=== PATIENT | female | born 1985 | race Two or more races ===

== ENCOUNTER 2024-11-01 15:11 | Outpatient (AMB) | payer OTHER, SELFPAY ==
--- OUTSIDE RECORDS SUMMARY | 2024-11-01 15:33 | XMS_ITS | Clinical Summary ---
Author Organization [facility] Address [address] [place] [address] Phone Care Team Providers Care Residential Property Manager Name Role Phone Mojgan Leal MD Primary Care Prov ider Allergies Active Allergy Reactions Criticality Noted Date Comments Penicillins 03/19/2024 Medications cholecalciferol (VITAMIN D-3) 50 mcg (2,000 unit) capsule 3 Active dimethyl fumarate 240 mg capsule,delayed release(DR/EC) Take by mouth 2 Times Daily. Active Alyacen 35, 28, 1-35 mg-mcg per tablet TAKE 1 TABLET BY MOUTH 1 (ONE) TIME EACH DAY. PLEASE DISPENSE 90 DAY SUPPLY AND GIVE NECON 35, 28 IF AVAILABLE. THE PATIENT HAD BREAKTHROUGH BLEEDING WHEN SWITCHED TO THE NORTREL, 21 AND DOES NOT WANT THIS. NEEDS PLACEBO WEEK. 84 tablet 3 5 Active MULTIVITAMIN ORAL Take 1 tablet by mouth 1 (one) time each day. Active ascorbic acid (VITAMIN C ORAL) Take 1 tablet by mouth 1 (one) time each day. With vitamin d Active UNABLE TO FIND Take 3 capsules by mouth 1 (one) time each day. Med Name: collagen orally Active Active Problems Problem Noted Date Diagnosed Date Overweight (BMI 25.0-29.9) 09/12/2024 S/P laparoscopic sleeve gastrectomy 09/12/2024 Excess skin of arm 08/10/2024 Intertrigo 08/10/2024 Breakthrough bleeding on control pills Assessment & Plan (06/14/2024 10:59 AM EST): I explained to Amy that, while her newer OCP is the same hormonal formulation as her previous, and sugar pills should not affect bleeding, it is possible that a slight variation in inactive ingredients could have caused her to have irregular bleeding. It could also be stress induced. I explained that we can try to get her back on her old pill. I sent a request to the pharmacy, but Necon not available. They will give her the 28 day pill available with placebo pills. We will see how she does moving forward. She will call if not improving in the next couple months. Class 3 severe obesity due t o excess calories with body mass index (BMI) of 50.0 to 59.9 in adult (CMS/HCC V24, CMS/HCC V28) 03/30/2024 Multiple sclerosis (CMS/HCC V24, CMS/HCC V28) Overview (03/30/2024): Dr. Sanchez History of COVID-19 03/07/2020 Chronic cholecystitis 07/11/2012 Vitamin D deficiency 06/19/2011 Encounters Date Type Department Care Team Description 09/12/2024 7:30 AM EDT Office Visit Adult Medicine [address] [phone] Rena Solomon PA Routine general medical examination at a health care facility (Primary Dx); Multiple sclerosis (CMS/HCC V24, CMS/HCC V28); Vitamin D deficiency; Frequent UTI; Overweight (BMI 25.0-29.9); S/P laparoscopic sleeve gastrectomy; Screening for cardiovascular condition; Encounter for screening involving social determinants of health (SDoH) 08/11/2024 Telephone [facility] [address] [place] [address] Bill Miguel DO authorization (08/11/24 HNE) 08/10/2024 8:30 AM EDT Consult Plastic & Reconstructive Surgery [facility] [address] [place] [address] Bill Miguel DO Excess skin of arm (Primary Dx); Intertrigo from Last 3 Months Immunizations Name Administration Dates Next Due Influenza Quadravalent, MDCK , 0.5ml, preservative free (Flucelvax) 6mo and older 02/08/2022,02/28/2018 Influenza Quadrivalent, 0.5m l, preservative free (Fluarix; FluLaval; Fluzone) ages 6mo and older (Afluria) 3yo and older 02/23/2016 Influenza trivalent, 0.5mL, preservative free (Fluarix; FluLaval; Fluzone) ages 6mo and older (Afluria) 3 years and older 01/17/2011 MMR, measles mumps and rubel la Live (Priorix; M-M-R II) 12mo and older 03/29/2013,02/22/2013 PPD Test 10/29/2015, 5,08/09/2013,2012,02/13/2011,09/24/2008 Tdap Tetanus diptheria acell ular pertussis (Boostrix; Adacel) 7yo and older 02/07/2024,02/13/2011 Surgical History Surgery Date Site/Laterality Comments SECTION PROCEDURE: HISTORICAL ; COMMENT: x2 TUBAL LIGATION PROCEDURE: HISTORICAL TUBAL LIGATION LAPAROSCOPIC PARTIAL GASTRECTOMY 03/01/2023 Medical History Medical History Date Comments Obesity DX:Obesity Genital HSV DX:Genital HSV Family History Medical History Relation Name Comments Fibromyalgia Brother No Known Problems Daughter 1 No Known Problems Daughter 2 Arthritis Father Diabetes Father Hypertension Father Osteoporosis Father No Known Problems Maternal Grandfather No Known Problems Maternal Grandmother Hypertension Mother Cervical cancer Other 1 mothers side No Known Problems Sister Breast cancer Neg Hx Colon cancer Neg Hx Ovarian cancer Neg Hx Prostate cancer Neg Hx Uterine cancer Neg Hx Relation Name Status Comments Brother Alive Daughter 1 Alive Daughter 2 Alive Father Alive Maternal Grandfather Alive Maternal Grandmother Alive Mother Alive Other 1 Other 2 Paternal Grandfather Paternal Grandmother Sister Alive Social History Tobacco Use Types Packs/Day Years Used Date Smoking Tobacco: Former Cigarettes Q uit: 03/11/2013 Smokeless Tobacco: Never Alcohol Use Standard Drinks/Week Comments No 0 (1 standard drink = 0.6 oz pur e alcohol) Housing Instability Answer Date Recorde d Are you worried that in the next 2 months you may not have stable housing? No 09/12/2024 Food Access & Nutrition Answer Date Rec orded Do you have access to a vari ety of food including fruits and vegetables? Yes 09/12/2024 Access to Healthcare Answer Date Record ed Within the last 3 months, ho w many times did you visit the emergency department for your medical care? 0 09/12/2024 Health Literacy Answer Date Recorded How often do you need to hav e someone help you when you read instructions, pamphlets, or other written material from your doctor or pharmacy? Never 09/12/2024 Caregiver: How often do you need to have someone help you when you read instructions, pamphlets, or other written material from your doctor or pharmacy? Not on file 09/12/2024 Financial Risk Answer Date Recorded How hard is it for you to pa y for the very basics like food, housing, medical care, and air conditioning / heating? Not very hard 09/12/2024 Transportation Answer Date Recorded Has the lack of transportati on kept you from meetings, work, or from getting things needed for daily living? No Has the lack of transportati on kept you from medical appointments or from getting medications? No 09/12/2024 Social Isolation Answer Date Recorded How often do you feel lonely or isolated from th ose around you? Never 09/12/2024 Food Risk Answer Date Recorded Within the past 12 months we worried whether our food would run out before we got money to buy more. Never true 09/12/2024 Within the past 12 months th e food we bought just didn't last and we didn't have money to get more. Never true 09/12/2024 Dependent Care Answer Date Recorded Do you need help finding or paying for care for your loved ones. For example, childbirth and infant care teacher or elderly care for an older adult? No 09/12/2024 Education Answer Date Recorded Do you think completing more education or training, like finishing a GED, going to college, or learning a trade, would be helpful for you? No 09/12/2024 Employment and Income Answer Date Recor ded During the last four weeks, have you been actively looking for work? No 09/12/2024 Living Situation Answer Date Recorded What is your living situation? 0 09/12/2024 Comments No Sex and Gender Information Value Date Recorded Sex Assigned at Female 03/19/2024 6:32 PM EST Legal Sex Female 9:32 AM EST Gender Identity Female 03/19/2024 6:32 PM EST Sexual Orientation Straight 03/19/2024 6: 33 PM EST Obstetrics History Para Term AB IAB SAB Ectopic Multiple Livin g Live Births 2 2 2 2 2 Date Outcome GA Total Labor Labor/2nd/3rd Weight Sex Type Anes PTL Hazel A1 A5 Name Clin 01/09 Term 40w 0d F CS-Un spec Living Nabila 04/10 Term 40w 0d F CS-Un spec Living Nathan Last Filed Vital Signs Vital Sign Reading Time Taken Comments Blood Pressure 108/60 09/12/2024 7:27 AM EDT Pulse 64 09/12/2024 7:27 AM EDT Temperature 36.6 C (97.8 F) 09/12/2024 7:27 AM EDT Respiratory Rate 12 09/12/2024 7:27 AM EDT Oxygen Saturation 100% 03/19/2024 8:02 PM EST Inhaled Oxygen Concentration - - Weight 68.8 kg (151 lb 9.6 oz) 09/12/2024 7:27 A M EDT Height 154.9 cm (5' 1 ) 09/12/2024 7:27 AM EDT Body Mass Index 28.64 09/12/2024 7:27 AM EDT Plan of Treatment Upcoming Encounters Date Type Department Care Team (Late st Contact Info) Description 01/10/2025 2:00 PM EDT Office Visit Urogynecology [facility] [address] [place] [address] Jennifer Catherine MD [address] [place] [address] [address] [place] [address] 01/24/2025 8:00 AM EDT Office Visit B[facility] Surgery [facility] [address] [facility] [address] [place] [id number] Racheal Casas PA [address] [facility] [address] [place] [address] 09/17/2025 7:30 AM EDT Office Visit Adult Medicine [facility] [address] [place] [address] Rena Solomon PA [address] [place] [address] Health Maintenance Due Date Last Done Comments Hepatitis B Vaccines (1 of 3 - 19+ 3-dose series) 2005 Influenza Vaccine (#1) 2024 , 02/28/2018, 02/23/2016, Additional history exists Depression Screening 02/06/2025 02/07/2024 Social Influencers of Health Screening 09/12/2025 09/12/2024 Cervical Cancer Screening: HPV 07/03/2027 07/02/2022 Cholesterol Screening (Lipid Panel) 10/06/2029 10/06/2024, 08/20/2022 DTaP,Tdap,and Td Vaccines (3 - Td or Tdap) 02/06/2034 02/07/2024, 02/13/2011 MMR Vaccines Aged Out 03/29/2013, 02/22/2013 No lo nger eligible based on patient's age to complete this topic HIV Screening Completed 12/20/2018 Hepatitis C Screening Completed 12/20/2018 COVID-19 Vaccine Discontinued 03/02/2022, 10/2020, 06/11/2020, Additional history exists HIB Vaccines Aged Out No longer eligi ble based on patient's age to complete this topic HPV Vaccines Aged Out No longer eligi ble based on patient's age to complete this topic Hepatitis A Vaccines Aged Out No long er eligible based on patient's age to complete this topic IPV Vaccines Aged Out No longer eligi ble based on patient's age to complete this topic Meningococcal ACWY Vaccine Aged Out N o longer eligible based on patient's age to complete this topic Meningococcal B Vaccine Aged Out No l onger eligible based on patient's age to complete this topic Pneumococcal Vaccine: Pediatrics (0 to 5 Years) and At-Risk Patients (6 to 49 Years) Aged Out No longer eligible based on patient's age to complete this topic RSV Immunization Patients Under 20 months Aged Out No longer eligible based on patient's age to complete this topic Varicella Vaccines Aged Out No longer eligible based on patient's age to complete this topic Procedures Procedure Name Priority Date/Time Associated Diagnosis Comments CBC WITH AUTO DIFFERENTIAL Routine 10/06/2024 9:19 AM EDT Screening for cardiovascular condition LIPID PANEL WITH REFLEX TO DIRECT LDL Routine 10/06/2024 9:19 AM EDT Screening for cardiovascular condition COMPREHENSIVE METABOLIC PANEL Routine 10/06/2024 9:19 AM EDT Screening for cardiovascular condition CBC AND DIFFERENTIAL Routine 10/06/2024 9:19 AM EDT Screening for cardiovascular condition VITAMIN D 25 HYDROXY Routine 10/06/2024 9:19 AM EDT Vitamin D deficiency HM DEPRESSION SCREENING Routine 02/07/2024 HM HPV Routine 07/02/2022 HEPATITIS C SCREENING Routine 12/20/2018 HIV SCREENING Routine 12/20/2018 from Last 3 Months or Most Recently Relevant to Health Maintenance Results * (ABNORMAL) Lipid panel with reflex to direct LDL (10/06/2024 9:19 AM EDT) Cholesterol 190 0 - 200 mg/dL LAB CHEMISTRY METHOD 10/06/2024 4:37 PM EDT [facility] Triglycerides 60 0 - 150 mg/dL LAB CHEMISTRY METHOD 10/06/2024 4:37 PM EDT [facility] HDL 64 >=40 mg/dL LAB CHEMISTRY METHOD 10/06/2024 4:37 PM EDT [facility] LDL Calculated 114(H) 0 - 100 mg/dL LAB CHEMISTRY METHOD 10/06/2024 4:37 PM EDT [facility] VLDL Cholesterol Surinder 12 mg/dL LAB CHEMISTRY METHOD 10/06/2024 4:37 PM EDT [facility] Non HDL Chol. (LDL+VLDL) 126 <145 mg/dL LAB CHEMISTRY METHOD 10/06/2024 4:37 PM EDT [facility] Chol/HDL Ratio 3.0 0.0 - 4.4 LAB CHEMISTRY METHOD 10/06/2024 4:37 PM EDT [facility] Blood Venous blood specimen / Unknown Venipuncture / Unknown 10/06/2024 9:19 AM EDT 10/06/2024 9:19 AM EDT us Rena [place] LAB BLOOD ORDERABLES Final Resu lt [facility] [address] [place] [address], [place] [phone] * (ABNORMAL) CBC auto differential (10/06/2024 9:19 AM EDT) WBC 2.2(L) 4.8 - 10.8 K/mcL LAB HEMETOLOGY METHOD 10/06/2024 10:24 AM [facility] RBC 4.10 3.80 - 4.80 M/mcL LAB HEMETOLOGY METHOD 10/06/2024 10:24 AM [facility] Hemoglobin 12.5 11.5 - 16.0 g/dL LAB HEMETOLOGY METHOD 10/06/2024 10:24 AM T [facility] Hematocrit 37.1 35.0 - 47.0 % LAB HEMETOLOGY METHOD 10/06/2024 10:24 AM T [facility] MCV 90.5 79.0 - 98.0 FL LAB HEMETOLOGY METHOD 10/06/2024 10:24 AM [facility] MCH 30.5 27.0 - 32.0 pcg LAB HEMETOLOGY METHOD 10/06/2024 10:24 AM EDT [facility] MCHC 33.7 32.0 - 37.0 g/dL LAB HEMETOLOGY METHOD 10/06/2024 10:24 AM [facility] RDW 12.6 11.0 - 15.0 % LAB HEMETOLOGY METHOD 10/06/2024 10:24 AM [facility] Platelets 272 130 - 400 K/mcL LAB HEMETOLOGY METHOD 10/06/2024 10:24 AM [facility] MPV 9.9 7.0 - 11.0 FL LAB HEMETOLOGY METHOD 10/06/2024 10:24 AM [facility] NRBC 0.0 <1.0 % LAB HEMETOLOGY METHOD 10/06/2024 10:24 AM [facility] NRBC Absolute 0.00 <0.10 K/mcL LAB HEMETOLOGY METHOD 10/06/2024 10:24 AM [facility] Neutrophils Relative 67.2 % LAB HEMETOLOGY METHOD 10/06/2024 10:24 AM [facility] Lymphocytes Relative 22.1 % LAB HEMETOLOGY METHOD 10/06/2024 10:24 AM [facility] Monocytes Relative 8.8 % LAB HEMETOLOGY METHOD 10/06/2024 10:24 AM [facility] Eosinophils Relative 1.4 % LAB HEMETOLOGY METHOD 10/06/2024 10:24 AM [facility] Basophils Relative 0.5 % LAB HEMETOLOGY METHOD 10/06/2024 10:24 AM [facility] Immature Granulocytes Relative 0.0 % LAB HEMETOLOGY METHOD 10/06/2024 10:24 AM [facility] Neutrophils Absolute 1.46(L) 1.50 - 7.00 K/mcL LAB HEMETOLOGY METHOD 10/06/2024 10:24 AM EDT [facility] Lymphocytes Absolute 0.48(L) 1.00 - 5.00 K/[facility] LAB HEMETOLOGY METHOD 10/06/2024 10:24 AM EDT [facility] Monocytes Absolute 0.19(L) 0.20 - 1.00 K/[facility] LAB HEMETOLOGY METHOD 10/06/2024 10:24 AM EDT [facility] Eosinophils Absolute 0.03 0.00 - 0.50 K/[facility] HEMETOLOGY METHOD 10/06/2024 10:24 AM EDT [facility] Basophils Absolute 0.01 0.00 - 0.20 K/[facility] HEMETOLOGY METHOD 10/06/2024 10:24 AM EDT [facility] Immature Granulocytes Absolute 0.00 0.00 - 0.03 K/[facility] HEMETOLOGY METHOD 10/06/2024 10:24 AM EDT [facility] Blood Venous blood specimen / Unknown Venipuncture / Unknown 10/06/2024 9:19 AM EDT 10/06/2024 9:19 AM EDT Rena [place] LAB BLOOD ORDERABLES Final Resu lt [facility] [address] [place] [address], * Vitamin D 25 hydroxy (10/06/2024 9:19 AM EDT) Vit D, 25-Hydroxy 56.6 30.0 - 80.0 ng/mL LAB CHEMISTRY METHOD 10/06/2024 4:47 PM EDT [facility] Blood Venous blood specimen / Unknown Venipuncture / Unknown 10/06/2024 9:19 AM EDT 10/06/2024 9:19 AM EDT Rena [place] LAB BLOOD ORDERABLES Final Resu lt [facility] [address] [place] [address], * (ABNORMAL) Comprehensive metabolic panel (10/06/2024 9:19 AM EDT) Sodium 141 133 - 145 mmol/L LAB CHEMISTRY METHOD [facility]/06[facility]2024 [facility] Potassium 4.8 3.5 - 5.5 mmol/L LAB CHEMISTRY METHOD 10/06/2024 4:37 PM [facility] Chloride 107 96 - 110 mmol/L LAB CHEMISTRY METHOD 10/06/2024 4:37 PM [facility] CO2 29 21 - 32 mmol/L LAB CHEMISTRY METHOD 10/06/2024 4:37 PM [facility] Anion Gap 5 3 - 11 LAB CHEMISTRY METHOD 10/06/2024 4:37 PM [facility] Glucose 81 70 - 100 mg/dL LAB CHEMISTRY METHOD 10/06/2024 4:37 PM [facility] BUN 17 5 - 25 mg/dL LAB CHEMISTRY METHOD 10/06/2024 4:37 PM [facility] Creatinine 0.65 0.50 - 1.10 mg/dL LAB CHEMISTRY METHOD 10/06/2024 4:37 PM [facility] eGFR 116 >=60 mL/min/1. 73m2 LAB CHEMISTRY METHOD 10/06/2024 4:37 PM [facility] Comment:Calculation based on the Chronic Kidney Disease Epidemiology Collaboration (CKD-EPI) equation refit without adjustment for race. BUN/Creatinine Ratio 26.2 LAB CHEMISTRY METHOD 10/06/2024 4:37 PM [facility] Calcium 9.1 8.5 - 10.5 mg/dL LAB CHEMISTRY METHOD 10/06/2024 4:37 PM [facility] AST (SGOT) 10 10 - 42 unit/L LAB CHEMISTRY METHOD 10/06/2024 4:37 PM EDT [facility] ALT (SGPT) 22 10 - 60 unit/L LAB CHEMISTRY METHOD 10/06/2024 4:37 PM EDT [facility] Alkaline Phosphatase 40(L) 42 - 121 unit/L LAB CHEMISTRY METHOD 10/06/2024 4:37 PM EDT [facility] Total Protein 6.8 6.0 - 8.0 g/dL LAB CHEMISTRY METHOD 10/06/2024 4:37 PM EDT [facility] Albumin 4.0 3.2 - 5.0 g/dL LAB CHEMISTRY METHOD 10/06/2024 4:37 PM EDT [facility] Total Bilirubin 0.6 0.0 - 1.4 mg/dL LAB CHEMISTRY METHOD 10/06/2024 4:37 PM EDT [facility] Blood Venous blood specimen / Unknown Venipuncture / Unknown 10/06/2024 9:19 AM EDT 10/06/2024 9:19 AM EDT Rena [facility] LAB BLOOD ORDERABLES Final Resu lt [facility] [address] [place] [address], * Depression Screening (02/07/2024) Depression Screening Abstracted Historical Provider HEALTH MAINTENANCE Final Result * Cervical Cancer Screening: HPV (07/02/2022) Pathologist [facility] Cervical Cancer Screening: HPV Negative, Abstracted Historical Provider HEALTH MAINTENANCE Final Result * HIV Screening (12/20/2018) Pathologist [facility] HIV Screening Abstracted Historical Provider HEALTH MAINTENANCE Final Result * Hepatitis C Screening (12/20/2018) Hepatitis C Screening Abstracted us Historical Provider HEALTH MAINTENANCE Final Result from Last 3 Months or Most Recently Relevant to Health Maintenance Insurance [facility] Care Teams Residential Property Manager Relationship Specialty Start Date End Date Mojgan Leal MD [address] [place] [id number] PCP - General Internal Medicine 11/26/21
--- NOTE | 2024-11-01 15:58 | A.OFFVIS_ITS ---
Vital Signs 11/01/24 16:01 Height 5 ft 1 in Intake Visit Reasons: 6m/ MS Allergies Penicillins Allergy (Unknown, Verified 11/01/24 16:01) Unknown Medication List - Last Reconciled 11/01/24 by Phuong Gee CNP ascorbic acid (vitamin C) (C-1000 with Angela Hips) 1,000 mg PO DAILY dimethyl fumarate mg PO ferrous sulfate 325 mg PO DAILY pantoprazole 40 mg PO DAILY HPI Comments Details: 38 yo woman with remitting relapsing MS diagnosed May 2021 with symptoms of numbness and weakness of right arm and leg and electric shock feeling in legs with brain MRI revealing multiple lesions suggestive of MS. She was started on Tecfidera in May 2021. She was doing okay. She was taking dimethyl fumarate twice a day. Bladder control was okay. No further episodes of muscle spasms. Mood was okay. Sleep was okay. Some occasional numbness in hands at night on and off. No new weakness. [facility] Medical History (Updated 11/01/24 @ 16:00 by Phuong Gee CNP) Carpal tunnel syndrome, bilateral upper limbs Vitamin D deficiency Multiple sclerosis Obesity Review of Systems Const Denies chills, Denies daytime sleepiness, Denies difficulty sleeping, Denies fatigue, Denies fever(s), Denies frequent falls, Denies headache(s), Denies increased appetite, Denies poor appetite, Denies snoring, Denies weakness, Denies weight gain and Denies weight loss Eyes Denies loss of vision ENT Denies vertigo, Denies dizziness and Denies headache(s) Card Denies chest pain at rest, Denies chest pain with activity, Denies syncope, Denies leg edema and Denies palpitations Resp Denies snoring GI Denies constipation, Denies heartburn, Denies diarrhea and Denies nausea Denies urinary frequency, Denies urinary incontinence and Denies urinary urgency Musc Denies abnormal gait, Reports numbness and Reports tingling Skin/Breast Denies dry skin and Denies rash Neuro Denies abnormal gait, Denies vertigo, Denies dizziness, Denies syncope, Denies frequent falls, Denies headache(s), Denies lack of coordination, Denies loss of vision, Denies memory loss, Reports numbness, Denies restless legs, Denies seizure-like activity, Reports tingling, Denies paresthesias, Denies tremor(s) and Denies weakness Psych Denies anxiety, Denies depression, Denies auditory hallucinations, Denies memory loss, Denies visual hallucinations and Denies suicidal ideation Endo Denies fatigue and Denies palpitations Physical Exam Const Other: General Appearance:? normal, in no acute distress. Skin:? no rashes, no significant birthmarks. Heart:? S1, S2 normal, no murmurs. Lungs:? clear anteriorly and posteriorly. Extremities:? no edema. Psych:? alert, oriented, cognitive function intact, cooperative with exam. Neuro Other: Mental Status:?Normal attention, orientation, memory and affect.? Cranial Nerves:?Pupils are equal, round and reactive to light. External occular muscles are intact. Visual chan are full. Face is symmetrical. Facial sensations are normal. Tongue is midline. Palate elevates symmetrically. Shoulder shrugging is normal. Hearing to bedside conversation is normal. Motor Examination:?Normal muscle tone, bulk and strength,?Deep tendon reflexes are 2+,?Plantars are flexor.? Sensory Exam:?....? Coordination:?No ataxia,?no titubation.? Gait Exam: Within normal limits. Cerebellar Signs:?[id number] and [id number] is normal.? Extrapyramidal System:?No tremor, rigidity with normal facial expressions.? Pronator Drift:?Not present.? Involuntary Movements:?No tremors seen.? Speech:?Normal.? Results Reviewed Results Reviewed: Labs at [facility] in May 2021: JCV 2.6, ESR 59, KAMAR ok, vit D 18 CT brain WO at [facility] in Mar 2021: WNL MRI brain WO at [facility] in Mar 2021: multiple b/l lesions suggestive of MS MRI C spine WO at [facility] in Mar 2021: straight curvature, otherwise ok Labs at [facility] in Mar 2021: WBC 16, CMP ok, LFTs ok, Lipid profile in 2019 ok, lyme ok, Babesiosis test ok NCV/EMG UE at office in Nov 2023: WNL Assessment & Plan Assessment & Plan (1) Multiple sclerosis: Code(s): G35 - Multiple sclerosis Category: Medical Plan: Continue dimethyl fumarate capsule delayed release 240mg 1 capsule twice a day. Last MRI was 2020, MRI brain with and without contrast ordered. Orders: Orders MR head/brain wo/w con Today G35 - Multiple sclerosis Coding Level of Care Code Est Pt Level 3 (94546) Diagnoses Multiple sclerosis G35
== END 2024-11-01 16:14 | disposition home or self-care (01) ==
LOC: HO.HSM 15:11
PROVIDERS: PCP Internal Medicine; Referring Provider Internal Medicine; Visit Provider Registered Nurse
DX: G35 Multiple sclerosis (principal)
CPT/HCPCS: 99213

== ENCOUNTER → 2024-11-14 17:29 | Outpatient (BNV) | payer OTHER, SELFPAY | PROVIDERS: PCP Internal Medicine; Visit Provider Radiology Diagnostic Radiology | DX: G35 Multiple sclerosis (principal) | CPT/HCPCS: 70553 ==

== ENCOUNTER 2024-11-14 17:31 | Outpatient (REF) | payer OTHER, SELFPAY ==
--- NOTE | ~2024-11-14 | MR_ITS ---
EXAMINATION: MR BRAIN WITHOUT AND WITH CONTRAST CLINICAL INFORMATION: Multiple sclerosis. COMPARISON: None available. TECHNIQUE: Multiplanar, multisequence MRI of the brain was obtained before and after the intravenous administration of 6.5 mL gadolinium based without reported immediate complications. FINDINGS: Bilateral, multifocal, patchy and ovoid shaped, perpendicularly oriented to the corpus callosum nonenhancing no restricted diffusion deep periventricular white matter hyperintense T2 FLAIR signal abnormality involving centrum semiovale, anterior in the body corpus callosum and whitman radiata both cerebral hemispheres. There is positive central vein sign within these lesions No signal abnormality in the infratentorial compartment. No restricted diffusion. No abnormal enhancement within the intra-axial or the extra-axial compartment of the cranium. No acute intracranial hemorrhage, mass effect, midline shift, hydrocephalus or herniation. Flow-void signal within the main cerebral vessels is normal. No signal abnormality or abnormal enhancement in the posterior cranial fossa contents. Sellar/suprasellar region demonstrated no signal masses. Normal position of the cerebellar tonsils. No signal abnormality or enhancing mass in the intraconal or extraconal compartments of the orbits. Multifocal rounded nonenhancing no restricted diffusion soft tissue signal lesions in the scalp.. MR/MR head/brain wo/w con IMPRESSION: Nonenhancing or restricted diffusion supratentorial compartment demyelinating plaques. Electronically signed by: Toby Kerr MD 11/15/2024 08:06 AM EDT
== END 2024-11-14 17:32 | disposition home or self-care (01) ==
LOC: HO.MRI 17:31
PROVIDERS: PCP Internal Medicine; Visit Provider Registered Nurse
DX: G35 Multiple sclerosis (principal)
CPT/HCPCS: 70553; A9585

== ENCOUNTER 2025-01-24 15:07 | Outpatient (AMB) | payer OTHER, SELFPAY ==
--- NOTE | 2025-01-24 15:25 | MHC.OFFVIS ---
Intake Visit Reasons: 3m MS Allergies Penicillins Allergy (Unknown, Verified 01/24/25 15:29) Unknown Medication List - Last Reconciled 01/24/25 by hPuong Gee CNP ascorbic acid (vitamin C) (C-1000 with Angela Hips) 1,000 mg PO DAILY dimethyl fumarate mg PO ferrous sulfate 325 mg PO DAILY pantoprazole 40 mg PO DAILY HPI Comments Details: 39-year-old woman with remitting relapsing MS diagnosed May 2021 with symptoms of numbness and weakness of right arm and leg and electric shock feeling in legs with brain MRI revealing multiple lesions suggestive of MS. She was started on Tecfidera in May 2021. She was doing okay. She was taking dimethyl fumarate twice a day. She had some flushing with medication which was not significantly bothersome. No new symptoms. No new or increased weakness. Numbness in hands at night was infrequent. Bladder control was okay. No further episodes of muscle spasms. Mood was okay. Sleep was okay. She had labs done at [facility] earlier today and had results with her. [facility] Medical History (Updated 11/01/24 @ 16:00 by Phuong Gee CNP) Carpal tunnel syndrome, bilateral upper limbs Vitamin D deficiency Multiple sclerosis Obesity Review of Systems Const Denies chills, Denies daytime sleepiness, Denies difficulty sleeping, Denies fatigue, Denies fever(s), Denies frequent falls, Denies headache(s), Denies increased appetite, Denies poor appetite, Denies snoring, Denies weakness, Denies weight gain and Denies weight loss Eyes Denies loss of vision ENT Denies vertigo, Denies dizziness and Denies headache(s) Card Denies chest pain at rest, Denies chest pain with activity, Denies syncope, Denies leg edema and Denies palpitations Resp Denies snoring GI Denies constipation, Denies heartburn, Denies diarrhea and Denies nausea Denies urinary frequency, Denies urinary incontinence and Denies urinary urgency Musc Denies abnormal gait, Reports numbness and Reports tingling Skin/Breast Denies dry skin and Denies rash Neuro Denies abnormal gait, Denies vertigo, Denies dizziness, Denies syncope, Denies frequent falls, Denies headache(s), Denies lack of coordination, Denies loss of vision, Denies memory loss, Reports numbness, Denies restless legs, Denies seizure-like activity, Reports tingling, Denies paresthesias, Denies tremor(s) and Denies weakness Psych Denies anxiety, Denies depression, Denies auditory hallucinations, Denies memory loss, Denies visual hallucinations and Denies suicidal ideation Endo Denies fatigue and Denies palpitations Physical Exam Const Other: General Appearance:? normal, in no acute distress. Skin:? no rashes, no significant birthmarks. Heart:? S1, S2 normal, no murmurs. Lungs:? clear anteriorly and posteriorly. Extremities:? no edema. Psych:? alert, oriented, cognitive function intact, cooperative with exam. Neuro Other: Mental Status:?Normal attention, orientation, memory and affect.? Cranial Nerves:?Pupils are equal, round and reactive to light. External occular muscles are intact. Visual chan are full. Face is symmetrical. Facial sensations are normal. Tongue is midline. Palate elevates symmetrically. Shoulder shrugging is normal. Hearing to bedside conversation is normal. Sensory Exam:?....? Coordination:?No ataxia,?no titubation.? Gait Exam: Within normal limits. Extrapyramidal System:?No tremor, rigidity with normal facial expressions.? Pronator Drift:?Not present.? Involuntary Movements:?No tremors seen.? Speech:?Normal.? Results Reviewed Results Reviewed: [address] [address] Magnetic Resonance Report Signed Patient: Amy Neal MR#: [id number] : 1985 Acct:[id number] Age/Sex: 38 / F ADM Date: 11/14/24 Loc: HO.MRI Attending Dr: Phuong Gee CNP Ordering Physician: Phuong Gee CNP Date of Service: 11/14/24 Procedure(s): MR head/brain wo/w con Accession Number(s): [id number] cc: Mojgan Nunez MD; Phuong Gee CNP~ EXAMINATION: MR BRAIN WITHOUT AND WITH CONTRAST CLINICAL INFORMATION: Multiple sclerosis. COMPARISON: None available. TECHNIQUE: Multiplanar, multisequence MRI of the brain was obtained before and after the intravenous administration of 6.5 mL gadolinium based without reported immediate complications. FINDINGS: Bilateral, multifocal, patchy and ovoid shaped, perpendicularly oriented to the corpus callosum nonenhancing no restricted diffusion deep periventricular white matter hyperintense T2 FLAIR signal abnormality involving centrum semiovale, anterior in the body corpus callosum and whitman radiata both cerebral hemispheres. There is positive central vein sign within these lesions No signal abnormality in the infratentorial compartment. No restricted diffusion. No abnormal enhancement within the intra-axial or the extra-axial compartment of the cranium. No acute intracranial hemorrhage, mass effect, midline shift, hydrocephalus or herniation. Flow-void signal within the main cerebral vessels is normal. No signal abnormality or abnormal enhancement in the posterior cranial fossa contents. Sellar/suprasellar region demonstrated no signal masses. Normal position of the cerebellar tonsils. No signal abnormality or enhancing mass in the intraconal or extraconal compartments of the orbits. Multifocal rounded nonenhancing no restricted diffusion soft tissue signal lesions in the scalp.. MR/MR head/brain wo/w con IMPRESSION: Nonenhancing or restricted diffusion supratentorial compartment demyelinating plaques. Electronically signed by: Toby Kerr MD 11/15/2024 08:06 AM EDT RP Labs at [facility] 01/2025: CMP, Vitamin B12 and folate, Vitamin D, Iron Profile - ok -- Labs at [facility] in May 2021: JCV 2.6, ESR 59, KAMAR ok, vit D 18 CT brain WO at [facility] in Mar 2021: WNL MRI brain WO at [facility] in Mar 2021: multiple b/l lesions suggestive of MS MRI C spine WO at [facility] in Mar 2021: straight curvature, otherwise ok Labs at [facility] in Mar 2021: WBC 16, CMP ok, LFTs ok, Lipid profile in 2019 ok, lyme ok, Babesiosis test ok NCV/EMG UE at office in Nov 2023: WNL Assessment & Plan Assessment & Plan (1) Multiple sclerosis: Code(s): G35 - Multiple sclerosis Category: Medical Plan: MRI results reviewed. She had labs done earlier today at [facility] and had results with her which were reviewed. Continue dimethyl fumarate capsule delayed release 240mg 1 capsule twice a day. Coding Level of Care Code Est Pt Level 4 (31673) Diagnoses Multiple sclerosis G35
== END 2025-01-24 15:37 | disposition home or self-care (01) ==
LOC: HO.HSM 15:08
PROVIDERS: PCP Internal Medicine; Visit Provider Registered Nurse
DX: G35.A Relapsing-remitting multiple sclerosis (principal)
CPT/HCPCS: 99214